=== PATIENT | female | born 1960 | race Caucasian/White ===

== ENCOUNTER 2022-07-17 06:57 | Emergency (ER) | payer OTHER ==
[~2022-07-17] VITALS: Ht 165.1 cm; Wt 63.5 kg
[2022-07-17] MEDS ORDERED: MELO-105 PO (07:09)
[2022-07-17] MEDS ORDERED: HYDR12.55 PO (07:09)
[2022-07-17] MEDS ORDERED: IBUPROFEN 600 MG TABLET PO ONE (07:30)
[2022-07-17] MEDS ORDERED: HYDROCODONE/APAP 5-325MG TABLET PO ONE (07:30)
[2022-07-17] MEDS ORDERED: IBUPROFEN 600 MG TABLET ONE (07:40)
[2022-07-17] MEDS ORDERED: HYDROCODONE/APAP 5-325MG TABLET ONE (07:42)
[2022-07-17 07:44] LABS: HEMATOCRIT 37.8 % (31.2-41.9); MEAN CORPUSCULAR HEMOGLOBIN 29.6 uug (24.7-32.8); MEAN CORPUSCULAR VOLUME 88.7 fL (75.5-95.3); PLATELET COUNT (AUTO) 242 K/uL (179-408)
[2022-07-17 08:16] LABS: CARBON DIOXIDE 26 mmol/L (21-32); CHLORIDE 104 mmol/L (98-107); CREATININE 0.8 mg/dL (0.6-1.3); GLUCOSE 95 mg/dL (74-106); UREA NITROGEN, BLOOD 13 mg/dL (7-18)
[2022-07-17 08:28] LABS: ALANINE AMINOTRANSFERASE 28 U/L (14-59); ALKALINE PHOSPHATASE 57 U/L (50-136); ASPARTATE AMINOTRANSFERASE 15 U/L (15-37); BILIRUBIN,DIRECT < 0.1 mg/dL (0.0-0.2); BILIRUBIN,TOTAL 0.4 mg/dL (0.2-1.0); TOTAL PROTEIN, SERUM 7.8 g/dL (6.4-8.2)
[2022-07-17] MEDS ORDERED: SWABABLE VALVE TRANSFER SET EA MC ONE (10:25)
[2022-07-17] MEDS ORDERED: IV NORMAL SALINE 250 ML IV ONE (10:25)
[2022-07-17] MEDS ORDERED: IOHEXOL 350 100 ML INFUS..BTL ONE (10:25)
[2022-07-17] MEDS ORDERED: IBUP-1955 PO (12:58)
[2022-07-17 13:12] VITALS: BP 143/88
== END 2022-07-17 13:14 | disposition home or self-care (01) ==
LOC: ER 07:08
DX: R07.89 Other chest pain (principal); R79.1 Abnormal coagulation profile; R94.31 Abnormal electrocardiogram [ECG] [EKG]; J45.909 Unspecified asthma, uncomplicated; I10 Essential (primary) hypertension
CPT/HCPCS: 99285; 93970; 71275; 71045; 80076; 80048; 83880; 85025; 85379; 84484 ×2; 36415; 93005; Q9967; A4663